=== PATIENT | male | born 1990 | race American Indian/Alaskan Native ===

== ENCOUNTER 2020-08-27 16:46 | Emergency (ER) | payer BC ==
[2020-08-27] MEDS ORDERED: SODIUM CHLORIDE 0.9% 1000 ML 1,000 ML IV ONE (17:06)
[2020-08-27 17:26] LABS: Basophils # (Auto) 0.1 K/mm3 (0.0-0.1); Basophils % (Auto) 0.4 % (0.0-1.8); Eosinophils # (Auto) 0.1 K/mm3 (0.0-0.4); Eosinophils % (Auto) 0.5 % (0.0-4.3); Hematocrit 50.3 % (35.5-45.6); Hemoglobin 16.6 gm/dl (11.8-15.2); Lymphocytes # (Auto) 2.9 K/mm3 (1.2-5.4); Lymphocytes % (Auto) 23.3 % (13.4-35.0); Mean Corpuscular HGB Conc 33 % (32-34); Mean Corpuscular Volume 94 fl (84-94); Monocytes % (Auto) 7.9 % (0.0-7.3); Platelet Count 195 K/mm3 (140-440); Red Blood Count 5.36 M/mm3 (3.65-5.03); Red Cell Distribution Width 12.5 % (13.2-15.2)
--- NOTE | 2020-08-27 17:30 | Emergency Department Report ---
ED General Adult HPI - General Chief complaint: Dizziness Stated complaint: CODE MED PUI?: No Time Seen by Provider: 08/27/20 17:04 Source: patient, RN notes reviewed Mode of arrival: Wheelchair Limitations: Physical Limitation - History of Present Illness Initial comments: The patient was evaluated in the emergency department for symptoms described in the history of present illness. He/she was evaluated in the context of the global COVID-19 pandemic, which necessitated consideration that the patient might be at risk for infection with the virus that causes COVID-19. Institutional protocols and algorithms that pertain to the evaluation of patients at risk for COVID-19 are in a state of rapid change based on information released by regulatory bodies including the CDC and federal and state organizations. These policies and algorithms were followed during the patient's care in the emergency department. Please note that these policies, procedures and recommendations changed on a rapid basis. 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 Apparently, the patient felt weak and dizzy, lightheaded, almost passed out, but did not pass out, and was found by nursing team to be sitting on a chair, after his coworkers helped him to sit down. The patient denies physical pain. The patient states he has been having increased thirst, increased urination, dry mouth, generalized malaise and fatigue. He denies fever, loss of taste/smell, and exposure to Covid positive individuals that he is aware of. He states that this is never happened to him before. Collateral information obtained from nursing team; nursing team states that bystanders stated the patient appeared to be somewhat confused. -: Gradual Consistency: constant Improves with: rest Worsens with: movement - Related Data Home Medications Medication Instructions Recorded Confirmed Last Taken No Known Home Medications [No 08/27/20 08/27/20 Unknown Reported Home Medications] Allergies Allergy/AdvReac Type Severity Reaction Status Date / Time No Known Allergies Allergy Unverified 08/27/20 16:56 ED Review of Systems ROS: Stated complaint: CODE MED Other details as noted in HPI Constitutional: malaise, weakness Eyes: denies: eye discharge Respiratory: shortness of breath. denies: cough Cardiovascular: denies: chest pain Endocrine: increased thirst, increased urine Gastrointestinal: denies: abdominal pain, nausea, vomiting, hematemesis, melena, hematochezia Genitourinary: denies: dysuria Musculoskeletal: denies: myalgia Neurological: weakness ED Past Medical Hx - Social History Smoking Status: Never Smoker - Medications Home Medications: Home Medications Medication Instructions Recorded Confirmed Last Taken Type No Known Home Medications [No 08/27/20 08/27/20 Unknown History Reported Home Medications] ED Physical Exam - General Limitations: No Limitations General appearance: alert, anxious, obese - Head Head exam: Present: atraumatic, normocephalic - Eye Eye exam: Present: normal appearance, EOMI. Absent: nystagmus - ENT ENT exam: Present: normal exam, normal orophraynx, mucous membranes dry, normal external ear exam - Neck Neck exam: Present: normal inspection, full ROM. Absent: tenderness, meningismus - Respiratory Respiratory exam: Present: normal lung sounds bilaterally. Absent: respiratory distress, wheezes, rales, rhonchi, stridor, decreased breath sounds - Cardiovascular Cardiovascular Exam: Present: regular rate, normal rhythm, normal heart sounds. Absent: bradycardia, tachycardia, irregular rhythm, systolic murmur, diastolic murmur, rubs, gallop - GI/Abdominal GI/Abdominal exam: Present: soft. Absent: distended, tenderness, guarding, rebound, rigid, pulsatile mass - Rectal Rectal exam: Present: deferred - Extremities Exam Extremities exam: Present: normal inspection, full ROM, pedal edema (1+ edema in the lower extremities), other (2+ pulses noted in the bilateral upper and lower extremities. There is no palpable cord. negative Homans sign. Muscular compartments are soft. The pelvis is stable.). Absent: calf tenderness - Back Exam Back exam: Present: normal inspection, full ROM. Absent: tenderness, CVA tenderness (R), CVA tenderness (L), paraspinal tenderness, vertebral tenderness - Neurological Exam Neurological exam: Present: alert, oriented X3, other (No facial droop. Tongue midline. Extraocular movements intact bilaterally. Facial sensation intact to light touch in V1, V2, V3 distribution bilaterally. 5 and a 5 strength in 4 extremities. Sensation intact to light touch in 4 extremities.). Absent: motor sensory deficit - Psychiatric Psychiatric exam: Present: normal affect, normal mood - Skin Skin exam: Present: warm, dry, intact, normal color. Absent: rash ED Course Vital Signs 08/27/20 08/27/20 08/27/20 16:53 17:02 17:39 Temperature 98.1 F Pulse Rate 97 H Respiratory 20 24 Rate Blood Pressure 163/91 Blood Pressure [Right] O2 Sat by Pulse 97 Oximetry 08/27/20 19:57 Temperature Pulse Rate 86 Respiratory 20 Rate Blood Pressure Blood Pressure 113/74 [Right] O2 Sat by Pulse 98 Oximetry - Reevaluation(s) Reevaluation #1: 08/27/20 17:31 Differential diagnosis, including but not limited to: Diabetic ketoacidosis, hyperosmolar state, dehydration, electrolyte derangement Assessment and plan: 30-year-old gentleman, with a complaint of polyuria, poly dipsia, dry mouth, malaise and fatigue, with lightheadedness and weakness, who is not confused, without physical pain, morbidly obese, likely undiagnosed type II diabetic, probable obstructive sleep apnea, pulmonary hypertension. Place patient on traffic monitor specialist, obtain appropriate laboratory studies, x-ray of the chest, CT scan of the brain given history of confusion, and near syncope, appropriate metabolic studies, initiate IV fluids, and reassess. I discussed with the patient need for probable admission for probable diabetic ketoacidosis. He is amenable to this plan of care. At the moment, he is clinically sober with a GCS of 15. Reevaluation #2: 08/27/20 18:05 Laboratory studies demonstrate hyperglycemia, pseudohyponatremia, without evidence of anion gap acidosis. CT scan of the brain, x-ray the chest negative for acute findings. Patient awake, alert, sober, and having conversation in his room with his work colleagues. Leukocytosis is likely a stress reaction. He is not encephalopathic at this time. Suspect dehydration secondary to profound hyperglycemia. Given that patient does not have anion gap, that he is hemodynamically stable, awake, alert, oriented, protecting his airway, we will give aggressive IV fluids, and insulin bolus. We will observe in this department, and reassess. 08/27/20 18:09 Laboratory studies reviewed and appreciated. First-line treatment for hypertension, obesity, type 2 diabetes is diet lifestyle modification. We will discuss this with the patient Reevaluation #3: 08/27/20 18:19 I discussed the patient's laboratory studies and EKG findings and imaging findings with himself. We discussed his probable diagnosis of obesity, and type 2 diabetes. We extensively discussed diet and lifestyle modifications. Patient states he would prefer to try diet lifestyle modifications prior to initiating medications. He also states he is reliable to follow-up with an outpatient primary care doctor. He states he is motivated to follow-up, and pursue the aforementioned interventions. Therefore, through shared decision- making, once his glucose improves in this emergency room, we will discharge to follow-up. Also advised patient to not drive or operate motor vehicles until cleared to do so by a primary care doctor, and he verbalized understanding to this. 08/27/20 20:52 The patient is reassessed multiple times. He feels much improved. He was speaking on his cell phone multiple times, and does not appear to be in any acute distress. He provided verbal consent for this provider to discuss the details of his care with his mother. Repeat Accu-Chek improved. Vital signs stable. Patient states his mother can come by and pick him up. He is suitable for discharge at this time. Return precautions are reviewed. ED Medical Decision Making - Lab Data Result diagrams: 08/27/20 17:11 08/27/20 17:11 Vital Signs 08/27/20 08/27/20 16:53 17:02 Temperature 98.1 F Pulse Rate 97 H Respiratory 16 Rate Blood Pressure 163/91 O2 Sat by Pulse 97 Oximetry Lab Results 08/27/20 08/27/20 Range/Units 16:55 17:11 VBG pH 7.380 (7.320-7.420) POC Glucose > 600 H (70-105) mg/dL Vital Signs 08/27/20 08/27/20 08/27/20 16:53 17:02 17:39 Temperature 98.1 F Pulse Rate 97 H Respiratory 16 24 Rate Blood Pressure 163/91 O2 Sat by Pulse 97 Oximetry Lab Results 08/27/20 08/27/20 08/27/20 Range/Units 16:55 17:11 17:11 WBC 12.6 H (4.5-11.0) K/mm3 RBC 5.36 H (3.65-5.03) M/mm3 Hgb 16.6 H (11.8-15.2) gm/dl Hct 50.3 H (35.5-45.6) % MCV 94 (84-94) fl MCH 31 (28-32) pg MCHC 33 (32-34) % RDW 12.5 L (13.2-15.2) % Plt Count 195 (140-440) K/mm3 Lymph % (Auto) 23.3 (13.4-35.0) % [place] % (Auto) 7.9 H (0.0-7.3) % Eos % (Auto) 0.5 (0.0-4.3) % Baso % (Auto) 0.4 (0.0-1.8) % Lymph # (Auto) 2.9 (1.2-5.4) K/mm3 [place] # (Auto) 1.0 H (0.0-0.8) K/mm3 Eos # (Auto) 0.1 (0.0-0.4) K/mm3 Baso # (Auto) 0.1 (0.0-0.1) K/mm3 Seg Neutrophils % 67.9 (40.0-70.0) % Seg Neutrophils # 8.5 H (1.8-7.7) K/mm3 PT (12.2-14.9) Sec. INR (0.87-1.13) VBG pH (7.320-7.420) Sodium 128 L (137-145) mmol/L Potassium 4.2 (3.6-5.0) mmol/L Chloride 87.0 L (98-107) mmol/L Carbon Dioxide 29 (22-30) mmol/L Anion Gap 16 mmol/L BUN 4 L (9-20) mg/dL Creatinine 1.0 (0.8-1.3) mg/dL Estimated GFR > 60 ml/min BUN/Creatinine Ratio 4 % Glucose 701 H* (75-100) mg/dL POC Glucose > 600 H (70-105) mg/dL Calcium 9.5 (8.4-10.2) mg/dL Magnesium 2.00 (1.7-2.3) mg/dL Total Bilirubin 0.60 (0.1-1.2) mg/dL AST 22 (5-40) units/L ALT 53 (7-56) units/L Alkaline Phosphatase 160 H (35-129) units/L Total Creatine Kinase 220 H (55-170) units/L Total Protein 6.9 (6.3-8.2) g/dL Albumin 3.9 (3.9-5) g/dL Albumin/Globulin Ratio 1.3 % Urine Color (Yellow) Urine Turbidity (Clear) Urine pH (5.0-7.0) Ur Specific [place] (1.003-1.030) Urine Protein (Negative) mg/dL Urine Glucose (UA) (Negative) mg/dL Urine Ketones (Negative) mg/dL Urine Blood (Negative) Urine Nitrite (Negative) Urine Bilirubin (Negative) Urine Urobilinogen (<2.0) mg/dL Ur Leukocyte Esterase (Negative) Urine WBC (Auto) (0.0-6.0) /HPF Urine RBC (Auto) (0.0-6.0) /HPF U Epithel Cells (Auto) (0-13.0) /HPF Urine Mucus /HPF 08/27/20 08/27/20 08/27/20 Range/Units 17:11 17:11 Unknown WBC (4.5-11.0) K/mm3 RBC (3.65-5.03) M/mm3 Hgb (11.8-15.2) gm/dl Hct (35.5-45.6) % MCV (84-94) fl MCH (28-32) pg MCHC (32-34) % RDW (13.2-15.2) % Plt Count (140-440) K/mm3 Lymph % (Auto) (13.4-35.0) % [place] % (Auto) (0.0-7.3) % Eos % (Auto) (0.0-4.3) % Baso % (Auto) (0.0-1.8) % Lymph # (Auto) (1.2-5.4) K/mm3 [place] # (Auto) (0.0-0.8) K/mm3 Eos # (Auto) (0.0-0.4) K/mm3 Baso # (Auto) (0.0-0.1) K/mm3 Seg Neutrophils % (40.0-70.0) % Seg Neutrophils # (1.8-7.7) K/mm3 PT 12.4 (12.2-14.9) Sec. INR 0.94 (0.87-1.13) VBG pH 7.380 (7.320-7.420) Sodium (137-145) mmol/L Potassium (3.6-5.0) mmol/L Chloride (98-107) mmol/L Carbon Dioxide (22-30) mmol/L Anion Gap mmol/L BUN (9-20) mg/dL Creatinine (0.8-1.3) mg/dL Estimated GFR ml/min BUN/Creatinine Ratio % Glucose (75-100) mg/dL POC Glucose (70-105) mg/dL Calcium (8.4-10.2) mg/dL Magnesium (1.7-2.3) mg/dL Total Bilirubin (0.1-1.2) mg/dL AST (5-40) units/L ALT (7-56) units/L Alkaline Phosphatase (35-129) units/L Total Creatine Kinase (55-170) units/L Total Protein (6.3-8.2) g/dL Albumin (3.9-5) g/dL Albumin/Globulin Ratio % Urine Color Colorless (Yellow) Urine Turbidity Clear (Clear) Urine pH 6.0 (5.0-7.0) Ur Specific [place] 1.030 (1.003-1.030) Urine Protein <15 mg/dl (Negative) mg/dL Urine Glucose (UA) >=500 (Negative) mg/dL Urine Ketones Neg (Negative) mg/dL Urine Blood Neg (Negative) Urine Nitrite Neg (Negative) Urine Bilirubin Neg (Negative) Urine Urobilinogen < 2.0 (<2.0) mg/dL Ur Leukocyte Esterase Neg (Negative) Urine WBC (Auto) < 1.0 (0.0-6.0) /HPF Urine RBC (Auto) 2.0 (0.0-6.0) /HPF U Epithel Cells (Auto) < 1.0 (0-13.0) /HPF Urine Mucus Few /HPF - EKG Data -: EKG Interpreted by [place] EKG shows normal: sinus rhythm Rate: normal - EKG Data When compared to previous EKG there are: previous EKG unavailable 08/27/20 17:27 Sinus rhythm, 95 bpm, normal axis, normal intervals, low voltage in the inferior leads, minimal motion artifact. Not a STEMI - Radiology Data Radiology results: pending, report reviewed, image reviewed interpreted by me: X-ray of the chest, reviewed by myself, negative for acute findings, clear lung lance, cardiomegaly X-ray the chest is negative for acute findings. CT scan of the brain negative for acute findings. Critical Care Time: Yes Critical care time in (mins) excluding proc time.: 35 Critical care attestation.: If time is entered above; I have spent that time in minutes in the direct care of this critically ill patient, excluding procedure time. ED Disposition Clinical Impression: Hyperglycemia, Dehydration, Elevated blood pressure reading Obesity Qualifiers: Obesity type: unspecified obesity type Serious obesity comorbidity presence: unspecified whether serious comorbidity present Disposition: DC- TO HOME OR SELFCARE Is pt being admited?: No Does the pt Need Aspirin: No Condition: Stable Instructions: Preventing Type 2 Diabetes Mellitus, Hyperglycemia, Hypertension, Adult, [id number], Exercising to Lose Weight, Managing Your Hypertension Additional Instructions: Patient was found to have obesity, and elevated blood sugar levels while here in the emergency room, in addition to elevated blood pressure. We recommend that the patient exercise as tolerated, lose weight aggressively, avoid consumption of simple carbohydrates, sugary drinks, processed foods, and eat plenty of fiber, vegetables, and lean protein. We recommend that the patient follow-up with a primary care doctor within the next week. Patient is most likely a type II diabetic. Patient also most likely has hypertension, and obesity. First-line treatment is diet and lifestyle modifications. Patient may also reference the [place] [employer] w ebsite for diet lifestyle recommendations and advice. It is very important to lose weight, control blood pressure, and control blood sugar levels, through diet, exercise, and avoidance of sugar/simple carbohydrates. Long-term complications of diabetes, hypertension and hyperglycemia include stroke, heart attack, disability, , paralysis, loss of quality of life. Recommend that patient not drive or operate motor vehicles until cleared to do so by her primary care doctor. Recommend that patient drink at least 6 cups of water per day. Please return to the emergency room right away with new pain, worsened pain, migration of pain, ejected vomiting, change in mental status, confusion, binu bility to tolerate liquid feeds, new, worsened or different symptoms not present on the initial emergency room evaluation. Referrals: SEJAL SMALLS MD [Staff Physician] - 3-5 Days [facility] [Provider Group] - 3-5 Days
[2020-08-27 17:36] LABS: Bilirubin,Urine NEG (Negative); Blood,Urine NEG (Negative); Color,Urine Colorless (Yellow); Mucus,Urine FEW /HPF; Protein,Urine <15 mg/dL mg/dL (Negative); Urobilinogen,Urine < 2.0 mg/dL (<2.0); WBC,Urine < 1.0 /HPF (0.0-6.0)
[2020-08-27 17:37] LABS: INR 0.94 (0.87-1.13)
--- NOTE | 2020-08-27 17:39 | XRay Report ---
XR chest 1V ap INDICATION / CLINICAL INFORMATION: Lightheadedness/Dizziness COMPARISON: None available. FINDINGS: SUPPORT DEVICES: None. HEART / MEDIASTINUM: No significant abnormality. LUNGS / PLEURA: Lungs are clear. Costophrenic sulci are sharp. No pneumothorax. ADDITIONAL FINDINGS: No significant additional findings. IMPRESSION: 1. No acute findings. Signer Name: Angus Martínez MD Signed: 08/27/2020 5:35 PM Workstation Name: [id number]
[2020-08-27 17:44] LABS: Alanine Aminotransferase 53 units/L (7-56); Albumin 3.9 g/dL (3.9-5); BUN/Creatinine Ratio 4; Blood Urea Nitrogen 4 mg/dL (9-20); Calcium 9.5 mg/dL (8.4-10.2); Hemolysis Index 8
--- NOTE | 2020-08-27 17:55 | Cat Scan Report ---
NONENHANCED CT SCAN OF THE HEAD: INDICATION / CLINICAL INFORMATION: 30 years Male; Lightheadedness/Dizziness. TECHNIQUE: Routine CT head without contrast. All CT scans at this location are performed using CT dos e reduction for ALARA by means of automated exposure control. COMPARISON: None. FINDINGS: BRAIN / INTRACRANIAL CONTENTS: No acute hemorrhage, mass effect, midline shift, or acute, large damion torial infarct. No chronic infarct or encephalomalacia. Normal brain volume and ventricular/sulcal si ze for age. No significant white matter abnormality. Asymmetric lateral ventricles; trigonal region a nd in the occipital horns not dilated on the left side; Compensatory enlargement CRANIOCERVICAL JUNCTION: No significant abnormality. ORBITS: No significant abnormality of visualized orbits. SINUSES / MASTOIDS: No significant abnormality of the visualized paranasal sinuses or mastoid air eduardo ls. ADDITIONAL FINDINGS: None. IMPRESSION: No acute focal parenchymal lesion in the brain Asymmetrically larger left occipital horn and trigonal region of the left lateral ventricle Compensat ory enlargement Signer Name: Chao Hidalgo MD Signed: 08/27/2020 5:50 PM Workstation Name: [id number]
[2020-08-27] MEDS ORDERED: INSULIN REGULAR, HUMAN 100 UNIT/ML 3ML VIAL IV ONE (18:04)
[2020-08-27] MEDS ORDERED: SODIUM CHLORIDE 0.9% 1000 ML 2,000 ML IV ONE (18:04)
[2020-08-27] MEDS ORDERED: INSULIN REGULAR, HUMAN 100 UNITS/1 ML ONE (19:00)
[2020-08-27 19:58] VITALS: BP 113/74
== END 2020-08-27 22:33 | disposition home or self-care (01) ==
LOC: ED 16:46
DX: R73.9 Hyperglycemia, unspecified (principal); R03.0 Elevated blood-pressure reading, without diagnosis of hypertension; E66.9 Obesity, unspecified; E86.0 Dehydration
CPT/HCPCS: 36415; 70450; 71045; 80053; 81001; 82550; 82805; 82962; 83735; 85025; 85610; 93005; 96361; 96374; 99285; J7030; J1815